=== PATIENT | female | born 1925 | race Caucasian/White ===

== ENCOUNTER → 2016-07-20 | Day surgery (SDC) | payer OTHER, MEDICARE ==
[~2016-07-20] VITALS: Ht 152.4 cm; Wt 59.0 kg
[~2016-07-20] MED LIST: ASPIRIN EC81 M1 PO; CLONIDINE HCL0.2 M1 PO; LEVOXYL50 MCG PO; PRAVACHOL40 M1 PO; ZESTRIL40 M1 PO
--- NOTE | 2016-07-20 08:22 | Operative Report ---
Operative/Inv Procedure Report Surgery Date: 07/20/16 Name of Procedure: Cataract extraction with IOL left eye Pre-Operative Diagnosis: Dense cataract left eye Post-Operative Diagnosis: Same Estimated Blood Loss: zero Surgeon/Granulator Operator: ENZO MENDOZA MD Anesthesia: topical/intracameral Operative/Procedure Note Note: Operative/Inv Procedure Report Surgery Date: 07/20/16 Name of Procedure: Cataract extraction with IOL OS Pre-Operative Diagnosis: same Post-Operative Diagnosis: same Estimated Blood Loss: none Surgeon/Granulator Operator: ENZO MENDOZA MD Anesthesia: topical/intracameral Operative/Procedure Note Note: Pt. was prepped and draped for cataract surgery OS. Superior nasal stab incision was made. Lidocaine non preserved with epi was injected through stab incision followed by Trypan blue which was then removed with BSS, followed by Viscoat injection. A superotlemporal incision was made with a 2.45 mm phaco blade. Capsulorrexis was peroformed. Nucleus was hydrodissected. Nucleus removed with phaco. CDE 15.54. Cortex was removed and capsule polished. Viscoat was injected. [id number] +15.5 diopter office assistant receptionist chamber lens was placed in capsular bag. Viscoat was removed. Wound was hydrated. Vancomycin injected. Wound was checked for leaks and was water tight. Lid speculum was removed. Ofloxacin drops were applied. Pt. tolerated procedure well. NO complications. Pt had a dense cataract and the trypan blue was used to stain the capsule for better capsule visualization. DICTATED BY: ENZO MENDOZA MD DATE/TIME DICTATED:06/13/16911 BUILDING CUSTODIAN:YINA DATE/TIME TRANSCRIBED:06/13/16911 REPORT NUMBER:[id number] CONFIDENTIAL, DO NOT COPY WITHOUT APPROPRIATE AUTHORIZATION. <Electronically signed by ENZO MENDOZA MD> 06/13/16917
== END ==
LOC: STS 02:57
DX: H25.9 Unspecified age-related cataract (principal); I10 Essential (primary) hypertension; E11.9 Type 2 diabetes mellitus without complications; I25.10 Atherosclerotic heart disease of native coronary artery without angina pectoris; Z79.82 Long term (current) use of aspirin
CPT/HCPCS: J2250; V2632